=== PATIENT | male | born 1975 | race Caucasian/White ===

== ENCOUNTER → 2016-11-06 | Outpatient (CLI) | payer BC ==
[2016-11-06 11:57] LABS: BASOPHILS # (AUTO) 0.07 10*3/UL; BASOPHILS % (AUTO) 0.9 % (0-1); EOSINOPHILS % (AUTO) 1.4 % (0-8); HEMATOCRIT 45.1 % (42.0-52.0); HEMOGLOBIN 15.1 g/dL (14.0-18.0); MEAN CORPUSCULAR HEMOGLOBIN 30.7 PG (27-31); MEAN CORPUSCULAR HGB CONC 33.5 g/dL (33-37); MEAN CORPUSCULAR VOLUME 91.7 FL (80-90); MEAN PLATELET VOLUME 9.1 FL (7.4-12.2); MONOCYTES # (AUTO) 0.46 10*3/UL (0.3-0.8); MONOCYTES % (AUTO) 6.2 % (5-15); NEUTROPHILS # (AUTO) 5.15 10*3/UL; NEUTROPHILS % (AUTO) 69.6 % (50-80); RED BLOOD COUNT 4.92 10^6/uL (4.70-6.10)
[2016-11-06 12:00] LABS: PLATELET MORPHOLOGY COMMENT NORMAL MORPHOLOGY (NORM); RBC MORPHOLOGY COMMENT NORMAL MORPHOLOGY (NORM); WBC MORPHOLOGY COMMENT NORMAL MORPHOLOGY (NORM)
[2016-11-06 12:24] LABS: BLOOD UREA NITROGEN 18 mg/dL (7-22); CALCIUM 9.4 mg/dL (8.7-10.7); CHOL/HDL RATIO 2.54 RATIO (0-4.0); EST GLOMERULAR FILTRATION > 60 (>60 ml/min/1.73m(2)); HDL CHOLESTEROL 73 mg/dL (40-150); HEMOGLOBIN A1C 5.05 % (4.2-6.0); SERUM ALBUMIN 4.2 g/dL (3.5-4.8); SERUM CHOLESTEROL 186 mg/dL (120-200)
[2016-11-06 12:39] LABS: FREE T4 (FREE THYROXINE) 1.03 ng/dL (0.93-1.71)
== END ==
LOC: MOB LAB 10:52
PROVIDERS: ATTEND Family Medicine
DX: R53.83 Other fatigue (principal); F52.21 Male erectile disorder; F41.9 Anxiety disorder, unspecified; Z12.5 Encounter for screening for malignant neoplasm of prostate
CPT/HCPCS: 36415; 80053; 80061; 82306; 83036; 84403; 84439; 84443; 85025; G0103

== ENCOUNTER → 2016-11-20 | Outpatient (CLI) | payer BC ==
--- NOTE | 2016-11-20 15:02 | DI ---
US SOFT TISSUE HEAD/NECK,11/20/2016 2:24 PM: Clinical History: Abnormal thyroid exam. Previous Exam: None at this facility. Findings: Multiple grayscale and color Doppler sonographic images are obtained through the thyroid, and demonst rate normal homogeneous echotexture. There is no mass nor cyst. The right thyroid lobe measures 5.0 x 1.8 x 2.2 cm and the left thyroid lobe measures 4.3 x 2.1 x 2.0 cm with a normal thyroid isthmus measuring 4 mm. Impression: Normal thyroid ultrasound.
== END ==
LOC: US 14:21
PROVIDERS: ATTEND Family Medicine
DX: R94.6 Abnormal results of thyroid function studies (principal)
CPT/HCPCS: 76536

== ENCOUNTER → 2016-12-04 | Outpatient (CLI) | payer BC | LOC: US 12:50 | PROVIDERS: ATTEND Family Medicine | DX: R00.2 Palpitations (principal); R53.83 Other fatigue; R06.00 Dyspnea, unspecified; R07.9 Chest pain, unspecified; R60.9 Edema, unspecified | CPT/HCPCS: 93306 ==

== ENCOUNTER → 2016-12-21 | Outpatient (CLI) | payer BC ==
--- NOTE | 2016-12-23 09:14 | HOLTER ---
[facility] Interpretive Statements Twenty four hour holter done for palpitations. No recorded symptoms, however a adequate activity diary was furnished. There were 047910 beats with 530213 normal beats.The minimum heart rate was 51 during sleep with average heart rate of 88 and maximum sinus rate of 143 with physical work. There were 10 PACs with 8 singlets and1 pair. There were 2 single VPCs. No ectopic tachycardia was seen and no diagnostic ST-T wave changes or pause were noted. An occassional sinus pause was present and the sinus tachycardia was seen during physical activity and driving. Imp: Essentially normal holter study with no recorded symptoms or significant ectopy or pauses. Appropiate sinus tachycardia was seen with physical work. Of interest was sinus tachycardia up to 120s while driving Electronically Signed On 12-23-16 11:58:15 MDT by Dago Fox [id number]
== END ==
LOC: RT 17:06
PROVIDERS: ATTEND Family Medicine
DX: R00.2 Palpitations (principal)
CPT/HCPCS: 93225; 93226; 93227